=== PATIENT | female | born 1965 | race Caucasian/White ===

== ENCOUNTER 2024-08-01 14:38 | Outpatient (CLI) | payer BC, SELFPAY ==
--- NOTE | ~2024-08-01 | MR_ITS ---
EXAMINATION: MR shoulder RT wo con DATE: 08/01/2024 15:07 INDICATION: Right shoulder pain TECHNIQUE: Magnetic resonance imaging (MRI) of the right shoulder was performed without intravenous c ontrast. Sequences included axial PD-weighted FS FSE, coronal oblique PD-weighted FS FSE, coronal obl ique T2-weighted FS FSE, sagittal PD-weighted FS FSE, and sagittal T1-weighted SE. COMPARISON: None. FINDINGS: Coracoacromial arch: The acromion undersurface is curved in morphology (type II). The coracoacromial ligament is normal. M ild acromioclavicular osteoarthritis. Rotator cuff: The supraspinatus and mild infraspinatus tendinopathy. There is attenuation of the distal infraspinat us and supraspinatus tendons with undersurface tear involving approximately 50% of the tendon thickne ss of the infraspinatus and anterior two thirds of the infraspinatus tendon. There is more severe at the supraspinatus tendon where there appears to be fraying of the residual bursal sided fibrous as we ll as an 8 x 8 mm full-thickness tear defect overlying the apex of the humeral head. Mild subscapular is tendinopathy with small partial tear involving the superolateral margin of the lesser tuberosity f ootplate. The teres minor tendon is normal. Mild fatty atrophy of the supraspinatus and infraspinatus muscle belly. There is moderate fatty atrophy of the teres minor muscle belly. Biceps tendon, glenoid labrum and glenohumeral cartilage: The long head of the biceps tendon is subluxed medial rim of the cephalad aspect of the intertubercul ar groove and across the small sub there is tendon tear defect. There is mild tendinopathy without te ar of the intra-articular portion of the long head biceps tendon. There is a tear of the 12:00-10:00 position of the posterior superior glenoid labrum. There is additional less well-defined degenerative tearing of the anterosuperior labrum. Mild glenohumeral osteoarthritis with partial-thickness cartil age loss with smooth chondral surface along the inferomedial aspect of the humeral head and with tiny marginal osteophytes along the inferior glenoid. Fluid: Physiologic amount fluid in the glenohumeral joint space. There is mild bicipital tenosynovitis. No l oose osteochondral bodies. Small amount of fluid the subacromial/subdeltoid bursa likely enhancing fl uid in the glenohumeral joint space extending through the full-thickness rotator cuff tear. Bones: Mild edema along the middle facet footplate of the rotator cuff likely related to rotator cuff diseas e. Marrow signal is otherwise unremarkable with no fracture or pathologic marrow replacing process. IMPRESSION: 1. Moderate rotator cuff tendinopathy with extensive articular sided tear of the supraspinatus and an terior two thirds of the infraspinatus tendon, more severe at the former with air is also a small ful l-thickness tear along the apex of the humeral head. 2. Small partial tear along the superolateral margin of the lesser tuberosity footplate of the subsca pularis tendon allowing medial subluxation the long head biceps tendon across the cephalad aspect of the medial rim of the intertubercular groove. 3. Bicipital tenosynovitis and mild tendinopathy without tear of the intra-articular long head biceps tendon. 4. Mild glenohumeral osteoarthritis with tear of the posterior superior glenoid labrum and small laura on of mild labral degeneration at the anteroinferior labrum. 5. Mild acromioclavicular osteoarthritis. Reviewed, dictated and finalized at location [facility] [employer] IMPRESSION: 1. Moderate rotator cuff tendinopathy with extensive articular sided tear of th e supraspinatus and anterior two thirds of the infraspinatus tendon, more sever e at the former with air is also a small full-thickness tear along the apex of the humeral head. 2. Small partial tear along the superolateral margin of the lesser tuberosity f ootplate of the subscapularis tendon allowing medial subluxation the long head biceps tendon across the cephalad aspect of the medial rim of the intertubercul ar groove. 3. Bicipital tenosynovitis and mild tendinopathy without tear of the intra-[place] cular long head biceps tendon. 4. Mild glenohumeral osteoarthritis with tear of the posterior superior glenoid labrum and small region of mild labral degeneration at the anteroinferior labr um. 5. Mild acromioclavicular osteoarthritis.
== END 2024-08-01 14:39 | disposition home or self-care (01) ==
LOC: GOSHIMG 14:39
PROVIDERS: PCP Physician Assistant; Visit Provider Physician Assistant
DX: S46.011A Strain of muscle(s) and tendon(s) of the rotator cuff of right shoulder, initial encounter (principal); M75.31 Calcific tendinitis of right shoulder; M75.21 Bicipital tendinitis, right shoulder; M19.011 Primary osteoarthritis, right shoulder; X58.XXXA Exposure to other specified factors, initial encounter
CPT/HCPCS: 73221